=== PATIENT | female | born 1955 | race Caucasian/White ===

== ENCOUNTER 2016-06-15 12:11 | Emergency (ER) | payer OTHER ==
[2016-06-15 12:52] VITALS: TEMP 98.1; BMI 25.6
--- NOTE | 2016-06-15 13:50 | PDOC ---
History of Present Illness - General History Source: Patient, Family Exam Limitations: No Limitations - History of Present Illness Initial Comments: 06/15/16 13:58 The patient is a 60 year old female, with a significant past medical history of HTN (compliant with medications), who presents to the emergency department with headache and dizziness since this morning. She states that she usually takes one 25 mg of Metoprolol XL daily and her blood pressure usually does not go as high as 147/86. But today her blood pressure was 186/106. She describes her dizziness as if the room was spinning. The patient denies chest pain, shortness of breath. Denies fever, chills, nausea , vomit, diarrhea and constipation. Denies dysuria, frequency, urgency and hematuria. Allergies: None Past surgical history: None reported Social history: No alcohol, tobacco or drug use reported PMD - Dr. Dayton Zamora <Milad Crum - Last Filed: 06/15/16 15:16> <Myles Gaona - Last Filed: 06/15/16 17:11> - General Chief Complaint: Migraine Headache Stated Complaint: Migraine Headache Past History <Milad Crum - Last Filed: 06/15/16 15:16> - Past Medical History HTN: Yes Suicide Attempt (Hx): No - Psycho/Social/Smoking Cessation Hx Anxiety: No Suicidal Ideation: No Smoking Status: No Smoking History: Never smoked Have you smoked in the past 12 months: No Number of Cigarettes Smoked Daily: 0 Information on smoking cessation initiated: No Hx Alcohol Use: No Drug/Substance Use Hx: No Substance Use Type: None <Myles Gaona - Last Filed: 06/15/16 17:11> - Past Medical History Allergies/Adverse Reactions: Allergies Allergy/AdvReac Type Severity Reaction Status Date / Time No Known Allergies Allergy Verified 06/15/16 13:37 Home Medications: Ambulatory Orders Ibuprofen [Motrin -] 600 mg PO TID #21 tablet 09/02/14 Metoprolol Tartrate [Lopressor -] 25 mg PO DAILY 09/02/14 Review of Systems - Review of Systems Able to Perform ROS?: Yes Comments:: 06/15/16 13:58 GENERAL/CONSTITUTIONAL: No fever or chills. No weakness. HEAD, EYES, EARS, NOSE AND THROAT: No change in vision. No ear pain or discharge. No sore throat. CARDIOVASCULAR: No chest pain or shortness of breath RESPIRATORY: No cough, wheezing, or hemoptysis. GASTROINTESTINAL: No nausea, vomiting, diarrhea or constipation. GENITOURINARY: No dysuria, frequency, or change in urination. MUSCULOSKELETAL: No joint or muscle swelling or pain. No neck or back pain. SKIN: No rash NEUROLOGIC: +Headache, dizziness. No loss of consciousness, or change in strength/sensation. ENDOCRINE: No increased thirst. No abnormal weight change HEMATOLOGIC/LYMPHATIC: No anemia, easy bleeding, or history of blood clots. ALLERGIC/IMMUNOLOGIC: No hives or skin allergy. <Milad Crum - Last Filed: 06/15/16 15:16> *Physical Exam - Vital Signs Last Vital Signs Temp Pulse Resp BP Pulse Ox 98.1 F 61 14 186/106 98 06/15/16 12:42 06/15/16 12:42 06/15/16 12:42 06/15/16 12:42 06/15/16 12:42 - Physical Exam Comments: 06/15/16 13:58 GENERAL: Awake, alert, and fully oriented, in no acute distress HEAD: No signs of trauma, normocephalic, atraumatic EYES: PERRLA, EOMI, sclera anicteric, conjunctiva clear. Pupils equal and reactive to light. No nystagmus. ENT: Auricles normal inspection, hearing grossly normal, nares patent, oropharynx clear without exudates. Moist mucosa NECK: Normal ROM, supple, no lymphadenopathy, JVD, or masses LUNGS: No distress, speaks full sentences, clear to auscultation bilaterally HEART: Regular rate and rhythm, normal S1 and S2, no murmurs, rubs or gallops, peripheral pulses normal and equal bilaterally. ABDOMEN: Soft, nontender, normoactive bowel sounds. No guarding, no rebound. No masses EXTREMITIES: Normal inspection, Normal range of motion, no edema. No clubbing or cyanosis. NEUROLOGICAL: Cranial nerves II through XII grossly intact. Normal speech, normal gait, no focal sensorimotor deficits SKIN: Warm, Dry, normal turgor, no rashes or lesions noted. <Milad Crum - Last Filed: 06/15/16 15:16> - Vital Signs Last Vital Signs Temp Pulse Resp BP Pulse Ox 98.1 F 61 14 186/106 98 06/15/16 12:42 06/15/16 12:42 06/15/16 12:42 06/15/16 12:42 06/15/16 12:42 <Myles Gaona - Last Filed: 06/15/16 17:11> ED Treatment Course - LABORATORY CBC & Chemistry Diagram: 06/15/16 14:15 06/15/16 14:15 - RADIOLOGY Radiograph Interpretation: 06/15/16 15:[address] Reviewed by: Dr. Ron Toledo Impression: Normal Noncontrast CT of the brain. <Milda Crum - Last Filed: 06/15/16 15:16> - LABORATORY CBC & Chemistry Diagram: 06/15/16 14:15 06/15/16 14:15 <Myles Gaona - Last Filed: 06/15/16 17:11> *DC/Admit/Observation/Transfer - Attestations Scribe Attestion: 06/15/16 13:58 Documentation prepared by Milad Crum, acting as product manager medical device for Myles Gaona MD. <Milad Crum - Last Filed: 06/15/16 15:16> - Discharge Dispostion Admit: No <Myles Gaona - Last Filed: 06/15/16 17:11> Diagnosis at time of Disposition: Migraine headache - Discharge Dispostion Disposition: HOME Condition at time of disposition: Improved - Referrals Referrals: Dayton Zamora MD [Primary Care Provider] - - Patient Instructions Printed Discharge Instructions: Migraine -- Adult
[2016-06-15] MEDS ORDERED: LABETALOL HCL 5 MG/1 ML (100MG/20 ML VIAL) IVPUSH ONE (14:00)
[2016-06-15] MEDS ORDERED: LABETALOL HCL 5 MG/1 ML (100MG/20 ML VIAL) ONE (14:14)
[2016-06-15 14:32] LABS: BASOPHIL 0.7 % (0-2.0); EOSINOPHIL 0.8 % (0-4.5); MCH 29.9 pg (25.7-33.7); MCHC 33.5 g/dl (32.0-36.0); MEAN PLT VOLUME 9.3 fl (7.5-11.1); NEUTROPHILS 73.2 % (42.8-82.8); PLATELET COUNT 185 K/MM3 (134-434); RDW 13.4 % (11.6-15.6); WHITE BLOOD COUNT 5.2 K/mm3 (4.0-10.0)
[2016-06-15 14:34] LABS: URINE APPEARANCE CLEAR; URINE BILIRUBIN NEGATIVE (NEGATIVE); URINE BLOOD NEGATIVE (NEGATIVE); URINE COLOR STRAW; URINE GLUCOSE (UA) NEGATIVE (NEGATIVE); URINE KETONE NEGATIVE (NEGATIVE); URINE LEUK ESTERASE NEGATIVE (NEGATIVE); URINE NITRITE NEGATIVE (NEGATIVE); URINE PROTEIN NEGATIVE (NEGATIVE); URINE UROBILINOGEN NEGATIVE E.U./dl (0.2-1.0)
[2016-06-15 14:41] LABS: ALBUMIN 4.2 g/dl (3.4-5.0); ANION GAP 10 (8-16); BILIRUBIN,TOTAL 0.4 mg/dL (0.2-1.0); CO2 27 mmol/L (21-32); CREATININE 0.7 mg/dL (0.55-1.02); GLUCOSE,RANDOM 88 mg/dL (74-106); SGOT/AST 26 U/L (15-37); SGPT/ALT 35 U/L (12-78); TOT PROT 7.6 g/dl (6.4-8.2)
[2016-06-15 14:42] LABS: ALK PHOS 91 U/L (45-117)
[2016-06-15 16:29] VITALS: BP 140/88; PULSE 56
--- NOTE | 2016-06-22 17:50 | EKG ---
Test Reason : Blood Pressure : / mmHG Vent. Rate : 057 BPM Atrial Rate : 057 BPM P-R Int : 200 ms QRS Dur : 082 ms QT Int : 416 ms P-R-T Axes : 054 008 049 degrees QTc Int : 404 ms SINUS BRADYCARDIA OTHERWISE NORMAL ECG WHEN COMPARED WITH ECG OF 03-MAY-2012 22:26, NO SIGNIFICANT CHANGE WAS FOUND Confirmed by LARISSA MG MD ([id number]) on 06/22/2016 5:49:58 PM Referred By: Confirmed By:LARISSA MG MD
== END 2016-06-15 16:30 | disposition home or self-care (01) ==
LOC: JER 12:11
PROC: 3E033NZ Introduction of Analgesics, Hypnotics, Sedatives into Peripheral Vein, Percutaneous Approach (ICD-10-PCS; principal; 2016-06-15)
DX: G43.909 Migraine, unspecified, not intractable, without status migrainosus (principal); I10 Essential (primary) hypertension
CPT/HCPCS: 36415; 70450-TC; 80053; 81003; 85025; 93005; 93010; 99281-25

== ENCOUNTER 2018-09-24 14:16 | Emergency (ER) | payer OTHER ==
[2018-09-24 14:23] VITALS: BP 128/69; PULSE 90; TEMP 99.4; BMI 25.6
--- NOTE | 2018-09-24 14:40 | PDOC ---
History of Present Illness - General Chief Complaint: Respiratory Stated Complaint: COLD SYMPTOMS Time Seen by Provider: 09/24/18 14:24 History Source: Patient - History of Present Illness Timing/Duration: reports: week Past History - Past Medical History Allergies/Adverse Reactions: Allergies Allergy/AdvReac Type Severity Reaction Status Date / Time No Known Allergies Allergy Verified 09/24/18 14:18 Home Medications: Ambulatory Orders Benzonatate [Tessalon Pearls -] 100 mg PO TID #21 capsule 09/24/18 Losartan/Hydrochlorothiazide [Losartan-Hctz 50-12.5 mg Tab] 1 each PO DAILY 05/03 COPD: No HTN: Yes - Suicide/Smoking/Psychosocial Hx Smoking Status: No Smoking History: Never smoked Have you smoked in the past 12 months: No Number of Cigarettes Smoked Daily: 0 Hx Alcohol Use: No Drug/Substance Use Hx: No Substance Use Type: None Review of Systems - Review of Systems Constitutional: Yes: Fever Respiratory: Yes: Cough. No: Shortness of Breath, Wheezing Cardiac (ROS): No: Chest Pain *Physical Exam - Vital Signs Last Vital Signs Temp Pulse Resp BP Pulse Ox 99.4 F 90 20 128/69 99 09/24/18 14:21 09/24/18 14:21 09/24/18 14:21 09/24/18 14:21 09/24/18 14:21 - Physical Exam General Appearance: Yes: Appropriately Dressed. No: Apparent Distress HEENT: positive: Normal ENT Inspection, Normal Voice. negative: Scleral Icterus (R), Scleral Icterus (L) Neck: positive: Supple. negative: Lymphadenopathy (R), Lymphadenopathy (L) Respiratory/Chest: positive: Lungs Clear, Normal Breath Sounds. negative: Respiratory Distress Cardiovascular: positive: Regular Rate, S1, S2 Integumentary: positive: Dry, Warm Neurologic: positive: Fully Oriented, Alert, Normal Mood/Affect ED Treatment Course - RADIOLOGY Radiology Studies Ordered: Category Date Time Status CHEST PA & LAT [RAD] Stat Radiology 09/24/18 14:34 Ordered Medical Decision Making - Medical Decision Making 09/24/18 14:35 62 yo F, h/o HTN, here w/ dry cough w/ low grade fever x 1 week, no hemoptysis, CP or SOB. Had similar sxs > 2 weeks ago that improved w/ cough meds given by PMD. No h/o PNA, Non-smoker See exam R/o PNA, possibly viral Well june and stable here w/ clear chest/lungs -CXR -anticipate dc w/ supportive tx 09/24/18 14:53 CXR read as neg. Will dc w/ supportive tx, pmd f/u as needed *DC/Admit/Observation/Transfer Diagnosis at time of Disposition: URI (upper respiratory infection) Qualifiers: URI type: unspecified viral URI Qualified Code(s): J06.9 - Acute upper respiratory infection, unspecified - Discharge Dispostion Disposition: HOME Condition at time of disposition: Good - Prescriptions Prescriptions: Benzonatate [Tessalon Pearls -] 100 mg PO TID #21 capsule - Referrals Referrals: Aliya Peralta MD [Primary Care Provider] - - Patient Instructions Printed Discharge Instructions: DI for Viral Upper Respiratory Infection -- Adult Additional Instructions: You likely have a viral URI. Your x-ray showed no evidence of pneumonia. Take Tessalon Perles as needed for cough and continue to follow-up with your PMD - Post Discharge Activity
== END 2018-09-24 15:02 | disposition home or self-care (01) ==
LOC: JERFT 14:16 → JER 14:16 → JERFT 15:02
DX: J06.9 Acute upper respiratory infection, unspecified (principal); I10 Essential (primary) hypertension
CPT/HCPCS: 71046-TC-FY; 99281-25

== ENCOUNTER 2023-01-24 09:10 | Emergency (ER) | payer MEDICARE ==
[2023-01-24 09:26] VITALS: BP 121/76; PULSE 64; RESP 19; TEMP 98.2; BMI 26.4
[2023-01-24] MEDS ORDERED: ACETAMINOPHEN 1000 MG/100 ML BAG IVPB ONE (10:09)
[2023-01-24] MEDS ORDERED: ACETAMINOPHEN INJECTION 100 ML IVPB ONE (10:19)
[2023-01-24 10:51] LABS: EPI CELLS 20 /uL (0-25.1); HYALINE CASTS 0 /uL (0-3.1); URINE APPEARANCE CLEAR; URINE BACTERIA 61 /uL (0-1359); URINE BILIRUBIN NEGATIVE (NEGATIVE); URINE COLOR YELLOW; URINE GLUCOSE (UA) NEGATIVE (NEGATIVE); URINE KETONE NEGATIVE (NEGATIVE); URINE LEUK ESTERASE 2+ (NEGATIVE); URINE NITRITE NEGATIVE (NEGATIVE); URINE PROTEIN NEGATIVE (NEGATIVE); URINE RBC 4 /uL (0-23.9); URINE UROBILINOGEN 0.2 mg/dL (0.2-1.0); URINE WBC 12 /uL (0-25.8)
[2023-01-24 10:57] LABS: BASO % 0.9 % (0-2.0); EOS % 0.7 % (0-4.5); HEMATOCRIT 42.4 % (32.4-45.2); LYMPH % 21.3 % (8-40); MCH 29.1 pg (25.7-33.7); MCHC 33.1 g/dl (32.0-36.0); MEAN CELL VOLUME 87.8 fl (80-96); MEAN PLT VOLUME 9.2 fl (7.5-11.1); MONO % 5.5 % (3.8-10.2); NEUT % 71.6 % (42.8-82.8); PLATELET COUNT 247 10^3/uL (134-434); RBC 4.83 M/mm3 (3.60-5.2); RDW 13.8 % (11.6-15.6); WHITE BLOOD COUNT 5.9 K/mm3 (4.0-10.0)
[2023-01-24 11:01] LABS: INR 1.01 (0.83-1.09); PROTHROMBIN TIME (PATIENT) 11.7 SEC (9.7-13.0)
[2023-01-24 11:03] LABS: ACTIVATED PTT 31.4 SECONDS (25.2-36.5)
[2023-01-24 11:21] LABS: POTASSIUM 4.5 mmol/L (3.5-5.1)
[2023-01-24 11:23] LABS: ALBUMIN 4.3 g/dl (3.4-5.0); MAGNESIUM 2.3 mg/dL (1.8-2.4)
[2023-01-24 11:26] LABS: CREATININE 0.9 mg/dL (0.55-1.3)
[2023-01-24 11:28] LABS: BILIRUBIN,TOTAL 0.9 mg/dL (0.2-1)
== END 2023-01-24 13:28 | disposition home or self-care (01) ==
LOC: JER 09:10
PROC: 3E033NZ Introduction of Analgesics, Hypnotics, Sedatives into Peripheral Vein, Percutaneous Approach (ICD-10-PCS; principal; 2023-01-24)
DX: R10.31 Right lower quadrant pain (principal); R50.9 Fever, unspecified; R39.198 Other difficulties with micturition; R51.9 Headache, unspecified; N39.0 Urinary tract infection, site not specified
CPT/HCPCS: 36415; 74176-TC; 80053; 81003; 83735; 85025; 85610; 85730; 86850; 86900; 86901; 87086; 96374; 99284-25